=== PATIENT | female | born 1980 | race Caucasian/White ===

== ENCOUNTER 2019-02-23 19:35 | Emergency (ER) | payer OTHER, MEDICAID ==
[~2019-02-23] VITALS: Ht 162.6 cm; Wt 86.4 kg
[~2019-02-23 19:35] MED LIST: BENTYL10 MG PO; BUPROPION XL300 MG PO; CLARITIN 10 MG10 MG PO; ELAVIL25 MG PO; HYDRALAZINE HCL25 MG PO; INDERAL10 MG PO; NAPROSYN250 MG PO; PRILOSEC20 MG PO; SYNTHROID150 MCG PO
[2019-02-23 19:45] VITALS: Ht 162.6 cm; Wt 86.4 kg
[2019-02-23] MEDS ORDERED: TIROSINT137 MCG PO (19:46)
[2019-02-23] MEDS ORDERED: ZPAK PO (21:00)
[2019-02-23] MEDS ORDERED: CLARITIN 10 MG10 MG PO (21:00)
[2019-02-23 21:22] VITALS: BP 138/94
== END 2019-02-23 21:23 | disposition home or self-care (01) ==
LOC: D.ER 19:35
DX: J32.9 Chronic sinusitis, unspecified (principal); R09.82 Postnasal drip